=== PATIENT | male | born 1980 | race Caucasian/White ===

== ENCOUNTER 2019-09-01 14:26 | Emergency (ER) | payer OTHER, SELFPAY ==
--- NOTE | ~2019-09-01 | XR_ITS ---
EXAMINATION: XR hand RT min 3V INDICATION: Right hand pain TECHNIQUE: Three views of the right hand are obtained on four radiographs. COMPARISON: None available FINDINGS: There is no fracture, dislocation, or subluxation. There is mild dorsal soft tissue swellin g of the hand. The bones and joint spaces are normal. IMPRESSION: 1. No acute osseous abnormality. Reviewed, dictated and finalized at location B.
[2019-09-01 14:40] VITALS: BP 119/86; PULSE 89; RESP 20; TEMP 36.4; O2SAT 100
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
== END 2019-09-01 15:04 | disposition home or self-care (01) ==
PROVIDERS: Emergency Provider Registered Nurse; PCP Family Medicine
DX: S60.221A Contusion of right hand, initial encounter (principal); V86.06XA Driver of dirt bike or motor/cross bike injured in traffic accident, initial encounter; G47.33 Obstructive sleep apnea (adult) (pediatric); Z79.82 Long term (current) use of aspirin
CPT/HCPCS: 73130; 99213; G0463

== ENCOUNTER 2020-03-05 11:28 | Outpatient (CLI) | payer OTHER, SELFPAY ==
--- NOTE | ~2020-03-05 | CT_ITS ---
EXAMINATION: CT abdomen pelvis wo con DATE: 03/05/2020 12:08 INDICATION: Acute abdomen TECHNIQUE: Computed tomography (CT) of the abdomen and pelvis was performed without intravenous contr ast. Automated exposure control and iterative reconstruction technique were employed. The dose-length product was 589.58 mGy-cm. COMPARISON: None FINDINGS: Lung bases are clear. Heart size is normal. No pericardial or pleural effusion. Liver, gallbladder, s pleen, pancreas, bilateral adrenal glands and kidneys are normal. Mild diverticulosis along the desce nding and sigmoid colon. There is prominent asymmetric wall thickening and inflammatory stranding aamir rounding a diverticulum along the proximal sigmoid colon consistent with acute diverticulitis. No abs cess or free intraperitoneal gas. Small amount of likely reactive ascites in the deep pelvis. Small b owel and appendix are normal. Bladder is normal. Small bilateral fat-containing inguinal hernias. No pathologically enlarged abdominal or pelvic lymphadenopathy. Mild lower thoracic and minimal lumbar s pondylosis. IMPRESSION: 1. Radiographically uncomplicated sigmoid diverticulitis. 2. Small bilateral fat-containing inguinal hernias. Reviewed, dictated and finalized at location B. NING DEVELOPMENT MANAGER
[2020-03-05 12:09] LABS: Basophils Absolute Auto 0.1 K/mm3 (0.0-0.1); Basophils Percent Auto 0.4 % (0.2-1.2); Eosinophils Absolute Auto 0.1 K/mm3 (0-0.3); Eosinophils Percent Auto 0.3 % (0-4.4); Hematocrit 42.4 % (42.0-52.0); Hemoglobin 15.1 g/dL (14.0-18.0); Immature Granulocyte Absolute 0.06 K/mm3 (0.00-0.031); Immature Granulocyte Percent A 0.4 % (0-0.5); Lymphocytes Absolute Auto 1.68 K/mm3 (0.9-3.2); Lymphocytes Percent Auto 11.2 % (18.3-44.2); Mean Corpuscular HGB Conc 35.6 g/dl (32-36); Mean Corpuscular Hemoglobin 31.5 pg (26-34); Mean Corpuscular Volume 88.3 fl (80-100); Mean Platelet Volume 8.6 fl (7.4-10.4); Monocytes Absolute Auto 1.1 K/mm3 (0.1-0.6); Monocytes Percent Auto 7.4 % (2.6-8.5); Neutrophils Percent Auto 80.3 % (45.5-73.1); Platelet Count Result 234 k/mm3 (150-375); Red Cell Distribution Width 11.4 % (11.5-14.5); White Blood Count 14.9 K/mm3 (4.5-10.0)
[2020-03-05 12:38] LABS: Erythrocyte Sedimentation Rate 20 mm/hr (0-20)
== END 2020-03-05 11:29 | disposition home or self-care (01) ==
PROVIDERS: PCP Family Medicine; Visit Provider Family Medicine
DX: R10.0 Acute abdomen (principal); K40.90 Unilateral inguinal hernia, without obstruction or gangrene, not specified as recurrent
CPT/HCPCS: 36415; 74176; 85025; 85652

== ENCOUNTER 2020-11-23 03:03 | Day surgery (SDC) | payer OTHER, SELFPAY ==
[2020-11-12 15:58] VITALS: BMI 28.8
[2020-11-23 07:31] VITALS: BP 122/74; PULSE 57; RESP 20; TEMP 36.6; O2SAT 100; BMI 28.9
[2020-11-23] MEDS: LACTATED RINGERS 1,000 ML 150 ML IV CONT (07:42)
--- NOTE | 2020-11-23 07:46 | WPDANESEPPF ---
Anes - Initial Pre Proc Eval Procedure: Operation Date: 11/23/20 08:30 Proposed Procedures p Colonoscopy - Guru Mejia MD Date/Time: 11/23/20 07:46 Surgeon: Guru Mejia MD Pre Op Diagnosis: diverticulitis Patient Data Age: 40 Gender: M Height: 1.78 m Weight: 91.4 kg Last Vital Signs Temp 36.6 C 11/23/20 07:31 Pulse 57 L 11/23/20 07:31 Resp 20 11/23/20 07:31 BP 122/74 11/23/20 07:31 Pulse Ox 100 11/23/20 07:31 Allergies Allergy/AdvReac Type Severity Reaction Status Date / Time No Known Allergies Allergy Verified 11/23/20 07:29 Home Medications Medication Instructions Recorded Confirmed Type aspirin 325 mg tablet 325 mg PO DAILY 12/25/18 11/12/20 History cyanocobalamin (vitamin B-12) 250 250 mcg PO DAILY 12/25/18 11/12/20 History mcg tablet metoprolol tartrate 25 mg tablet See Rx Instructions .ROUTE 09/22/20 11/12/20 Rx .COMPLEX #30 tablet linaclotide 72 mcg capsule 72 mcg PO DAILY #30 cap 10/19/20 11/12/20 Rx flecainide 100 mg PO BID 11/12/20 11/12/20 History Patient hx anesthesia problems: none Family hx anesthesia problems: none Results Review: All pre-operative results and documents have been reviewed as part of the pre-operative evaluation. [facility] Past Medical History Medical History Family history of colon cancer Fracture of left hand Headache History of elevated lipids Migraine OMAR (obstructive sleep apnea) PAF (paroxysmal atrial fibrillation) Surgical History Surgical History H/O vasectomy History of appendectomy Family History Family History Father Heart disease Mother Patient's mother is in good health Father Patient's father is in good health Sibling Patient's sister is in good health Father Family history of cardiovascular disease Family history of heart disease in male family member before age 55 Sibling Carcinoma of colon, Onset Age: 42 Patient's brother is Social History Social History Social History: Smoking packs per day: 1 Smoking cigarettes per day: 20.0 Smoking status: Never smoker Tobacco type: cigarettes Second hand tobacco smoke exposure: No Smoking end date: 10/07/03 Alcohol intake: current Drinks per week: 12 Alcohol use details: Occasionally Substance use: never Substance use type: does not use Living arrangements: with family Gender identity (if verbalized by the patient): Male Sexual Orientation (if Verbalized by the Patient): Straight or Heterosexual Spiritual care concerns: No Anes - Eval Final PreProcedure Day of Procedure 11/23/20 07:46 Patient weight: overweight Heart: regular rate and rhythm Lungs: clear to auscultation Airway: Mallampati scale class II Neurological: alert and oriented Last oral intake: >/= 8 hours ASA classification: III Emergent: no Anesthetic plan: proceed Anesthesia type and monitoring: general GIVS and standard monitoring Results Review: All pre-operative results and documents have been reviewed as part of the pre-operative evaluation. Informed Consent: The patient's anesthetic plan and its attendant risks and benefits were discussed with the patient/family/POA. Questions were solicited and answers provided to the satisfaction of the patient/family/POA.
--- NOTE | 2020-11-23 08:15 | WPDHPUPDATE1 ---
History and Physical Update Update Date/Time: 11/23/20 08:15 History and Physical has been reviewed, including an updated exam of the patient. There are NO changes in the patient's condition. Risks, benefits, and alternatives have been discussed and questions answered. Patient agrees to proceed with procedure.
[2020-11-23 08:47] VITALS: BP 96/56; PULSE 55; RESP 18; O2SAT 96
[2020-11-23 08:57] VITALS: BP 97/61; PULSE 51; RESP 16; O2SAT 97
[2020-11-23 09:07] VITALS: BP 107/74; PULSE 50; RESP 17; O2SAT 99
== END 2020-11-23 09:13 | disposition home or self-care (01) ==
PROVIDERS: PCP Family Medicine; Visit Provider Internal Medicine Gastroenterology
PROC: 0DJD8ZZ Inspection of Lower Intestinal Tract, Via Natural or Artificial Opening Endoscopic (ICD-10-PCS; CPT 45378; principal; 2020-11-23 08:30)
DX: K57.32 Diverticulitis of large intestine without perforation or abscess without bleeding (principal); K59.00 Constipation, unspecified; K64.8 Other hemorrhoids; I48.0 Paroxysmal atrial fibrillation; E78.5 Hyperlipidemia, unspecified; F17.200 Nicotine dependence, unspecified, uncomplicated; G47.33 Obstructive sleep apnea (adult) (pediatric); Z79.82 Long term (current) use of aspirin; Z80.0 Family history of malignant neoplasm of digestive organs
CPT/HCPCS: 45378; J2704; J7120

== ENCOUNTER 2021-03-23 10:48 | Emergency (ER) | payer OTHER, SELFPAY ==
[2021-03-23 10:52] VITALS: BP 120/74; PULSE 51; RESP 16; TEMP 36.3; O2SAT 100
--- NOTE | 2021-03-23 10:55 | ED.ABDPAIN ---
HPI - Abdominal Pain General Chief Complaint: Abdominal Pain Stated Complaint: ABD PAIN Time Seen by Provider: 03/23/21 10:55 Source: patient Mode of arrival: ambulatory Limitations: no limitations History of Present Illness HPI narrative: Carlito Tam is a 40 yo male with a PMH of a fib and diverticulitis, [facility] left lower quadrant pain and diarrhea since Sunday -has a diagnosis of diverticulitis had a colonoscopy 3 months ago; he states he has had multiple flareups years and most the time of pain disappears but sometimes it progresses to much worse illness as it did last year when he was diagnosed. He also has a diagnosis of of paroxysmal A. fib is on a rate control drug but no anticoagulants except aspirin-patient states that he was told he is not at high risk for stroke Related Data Home Medications Medication Instructions Recorded Confirmed aspirin 325 mg tablet 325 mg PO DAILY 12/25/18 11/12/20 cyanocobalamin (vitamin B-12) 250 250 mcg PO DAILY 12/25/18 11/12/20 mcg tablet flecainide 100 mg PO BID 11/12/20 11/12/20 Allergies Allergy/AdvReac Type Severity Reaction Status Date / Time No Known Allergies Allergy Verified 11/23/20 07:29 Review of Systems Review of Systems: CONSTITUTIONAL: Denies fever, chills, sweats. EYES: Denies visual changes, redness, discharge. ENT: Denies rhinorrhea, congestion, sore throat, otalgia. CARDIOVASCULAR: Denies chest pain, palpitations, edema. RESPIRATORY: Denies dyspnea, wheezing, cough GASTROINTESTINAL: has abdominal pain, nausea, vomiting, diarrhea since Sunday- not eating GENITOURINARY: Denies dysuria, hematuria, abnormal discharge SKIN: Denies rash or itching. NEUROLOGIC: Denies numbness, or focal weakness. PSYCHIATRIC: Denies anxiety or depression. [facility] Past Medical History Medical History Family history of colon cancer Fracture of left hand Headache History of elevated lipids Migraine OMAR (obstructive sleep apnea) PAF (paroxysmal atrial fibrillation) Surgical History Surgical History H/O vasectomy History of appendectomy Family History Family History Father Heart disease Mother Patient's mother is in good health Father Patient's father is in good health Sibling Patient's sister is in good health Father Family history of cardiovascular disease Family history of heart disease in male family member before age 55 Sibling Carcinoma of colon, Onset Age: 42 Patient's brother is Social History Social History Social History: Smoking packs per day: 1 Smoking cigarettes per day: 20.0 Smoking status: Never smoker Tobacco type: cigarettes Second hand tobacco smoke exposure: No Smoking end date: 10/07/03 Alcohol intake: current Drinks per week: 12 Alcohol use details: Occasionally Substance use: never Substance use type: does not use Gender identity (if verbalized by the patient): Male Sexual Orientation (if Verbalized by the Patient): Straight or Heterosexual Spiritual care concerns: No Comments At time of signature, I agree with nursing past medical, surgical, social and family history. There is no relevant family history pertinent to the presenting complaint. Exam Narrative: GENERAL: This is a well-nourished, well-developed patient, in mild distress. HEAD: normocephalic, atraumatic. EYESSclera clear/white. Vision is grossly intact. EARS: External ears normal, au. Hearing grossly intact. NOSE: External nose normal without nasal discharge, nares without redness, no rhinorrhea. THROAT: Mucous membranes moist, NECK: Neck supple, non-tender CARDIOVASCULAR: Regular rate and rhythm without murmurs, gallops, or rubs. RESPIRATORY: Clear to
== END 2021-03-23 11:29 | disposition short-term general hospital (02) ==
PROVIDERS: Emergency Provider Nurse Practitioner; PCP Family Medicine
DX: R10.32 Left lower quadrant pain (principal); Z87.891 Personal history of nicotine dependence; G47.33 Obstructive sleep apnea (adult) (pediatric); Z98.52 Vasectomy status; I48.0 Paroxysmal atrial fibrillation; Z79.82 Long term (current) use of aspirin
CPT/HCPCS: 99212; G0463

== ENCOUNTER 2021-03-23 12:02 | Emergency (ER) | payer OTHER, SELFPAY ==
--- NOTE | ~2021-03-23 | CT_ITS ---
EXAMINATION: CT abdomen pelvis w con INDICATION: Left lower quadrant abdominal pain TECHNIQUE: Computed tomographic images of the abdomen and pelvis were obtained after the administrati on of 100 cc of Omnipaque 350 intravenous contrast. The dose-length product (DLP) was 610.13 mGy-cm. Automated exposure control and iterative reconstruction technique were employed. COMPARISON: 03/05/2020 FINDINGS: Minimal dependent atelectasis is present in the lung bases. The heart size is normal. The l iver, spleen, pancreas, gallbladder, and adrenal glands are normal. The kidneys are unremarkable. No pathologically enlarged abdominal or pelvic lymph nodes are identified. Colonic diverticulosis is not ed. There is wall thickening at the proximal sigmoid colon with mild edematous stranding of the peric olic fat. There is no free intraperitoneal gas or evidence of bowel obstruction. There is a small fat -containing umbilical hernia. IMPRESSION: 1. Uncomplicated sigmoid diverticulitis. Reviewed, dictated and finalized at location A. R DIAMETER GRINDER
[2021-03-23 12:09] VITALS: BP 125/74; PULSE 63; RESP 16; TEMP 36.6; O2SAT 100
--- NOTE | 2021-03-23 12:40 | PC.NURSE ---
Patient reports lower abdominal pain that began Alexandre. History of diverticulitis.
[2021-03-23 12:57] LABS: Basophils Absolute Auto 0.1 K/mm3 (0.0-0.1); Basophils Percent Auto 0.7 % (0.2-1.2); Eosinophils Absolute Auto 0.2 K/mm3 (0-0.3); Eosinophils Percent Auto 2.6 % (0-4.4); Hematocrit 44.4 % (42.0-52.0); Hemoglobin 15.6 g/dL (14.0-18.0); Immature Granulocyte Absolute 0.03 K/mm3 (0.00-0.031); Immature Granulocyte Percent A 0.4 % (0-0.5); Lymphocytes Absolute Auto 1.59 K/mm3 (0.9-3.2); Lymphocytes Percent Auto 22.8 % (18.3-44.2); Mean Corpuscular HGB Conc 35.1 g/dl (32-36); Mean Corpuscular Hemoglobin 31.8 pg (26-34); Mean Corpuscular Volume 90.6 fl (80-100); Mean Platelet Volume 8.6 fl (7.4-10.4); Monocytes Absolute Auto 0.6 K/mm3 (0.1-0.6); Monocytes Percent Auto 8.3 % (2.6-8.5); Neutrophils Absolute Auto 4.5 K/mm3 (1.3-6.7); Neutrophils Percent Auto 65.2 % (45.5-73.1); Platelet Count Result 235 k/mm3 (150-375); Red Cell Distribution Width 12.1 % (11.5-14.5)
[2021-03-23] MEDS: SODIUM CHLORIDE 0.9% IV 1,000 ML 999 ML IV CONT (12:58)
[2021-03-23 12:59] LABS: Add Urine Microscopic? NO; Appearance Urine Clear (Clear); Bilirubin Urine Negative (Negative); Blood Urine Negative (Negative); Color Urine Yellow (Yellow); Glucose Urine UA Negative (Negative); Ketones Urine Negative (Negative); Leukocyte Esterase Ur Negative LEU/UL (Negative); Nitrate Urine Negative (Negative); Protein Urine Negative (Negative); Urobilinogen Urine Negative mg/dL (<2.0)
[2021-03-23 13:06] LABS: Alanine Aminotransferase 38 U/L (4-50); Albumin Level 4.6 g/dL (3.5-5.1); Alkaline Phosphatase 71 U/L (38-126); Anion Gap 11 mmol/L (8-16); Aspartate Amino Transferase 51 U/L (17-59); Bilirubin,Total 1.8 mg/dL (0.2-1.3); Blood Urea Nitrogen 8 mg/dL (9-20); Calcium 9.7 mg/dL (8.4-10.2); Carbon Dioxide 29 mmol/L (22-30); Chloride 98 mmol/L (98-107); Estimated CRCL calculation 96 ml/min; Estimated Glomerular Filt Rate > 60; Glucose 92 mg/dL (65-110); Lipase 40 U/L (23-300); Potassium 4.2 mmol/L (3.4-5.0); Sodium 138 mmol/L (137-145)
--- NOTE | 2021-03-23 13:06 | ED.ABDPAIN ---
HPI - Abdominal Pain General Chief Complaint: Abdominal Pain Stated Complaint: diverticulitis Time Seen by Provider: 03/23/21 12:29 Source: patient Mode of arrival: ambulatory Limitations: no limitations History of Present Illness HPI narrative: This is a 40 year old male that presents to the ER for LLQ abdominal pain present over the last 2 days. Associated with some diarrhea. Reports history of diverticulitis. Denies fever, vomiting, hematochezia, or dysuria. Related Data Home Medications Medication Instructions Recorded Confirmed aspirin 325 mg tablet 325 mg PO DAILY 12/25/18 03/23/21 cyanocobalamin (vitamin B-12) 250 250 mcg PO DAILY 12/25/18 03/23/21 mcg tablet dronedarone [Multaq] 400 mg BID 03/23/21 03/23/21 Allergies Allergy/AdvReac Type Severity Reaction Status Date / Time No Known Allergies Allergy Verified 11/23/20 07:29 Review of Systems Review of Systems: CONSTITUTIONAL: Denies fever GASTROINTESTINAL: Reports abdominal pain, diarrhea. Denies nausea, vomiting GENITOURINARY: Denies dysuria All systems reviewed & are unremarkable except as noted in HPI and below PMFSH Past Medical History Medical History Family history of colon cancer Fracture of left hand Headache History of elevated lipids Migraine OMAR (obstructive sleep apnea) PAF (paroxysmal atrial fibrillation) Surgical History Surgical History H/O vasectomy History of appendectomy Family History Family History Father Heart disease Mother Patient's mother is in good health Father Patient's father is in good health Sibling Patient's sister is in good health Father Family history of cardiovascular disease Family history of heart disease in male family member before age 55 Sibling Carcinoma of colon, Onset Age: 42 Patient's brother is Social History Social History Social History: Smoking packs per day: 1 Smoking cigarettes per day: 20.0 Smoking status: Never smoker Tobacco type: cigarettes Second hand tobacco smoke exposure: No Smoking end date: 10/07/03 Alcohol intake: current Drinks per week: 12 Alcohol use details: Occasionally Substance use: never Substance use type: does not use Gender identity (if verbalized by the patient): Male Sexual Orientation (if Verbalized by the Patient): Straight or Heterosexual Spiritual care concerns: No Exam Narrative: GENERAL: Well-appearing, well-nourished, and in no acute distress. HEAD: Normocephalic, atraumatic. EYES: EOMI. CHEST: Clear to auscultation. No respiratory distress. No wheezes rales or rhonchi HEART: Regular rate and rhythm. No murmur heard. Normal peripheral pulses. ABDOMEN: Soft, nondistended, normal active bowel sounds. Tender to palpation in the left lower quadrant, without guarding. No CVA tenderness EXTREMITIES: Normal range of motion. No edema. SKIN: Warm, dry, no rash. NEURO: No focal deficits. Alert and oriented x3. PSYCH: Normal mood and affect Course Vital Signs Vital signs: Vital Signs Temperature 97.9 F 03/23/21 12:09 Pulse Rate 63 03/23/21 12:09 Respiratory Rate 16 03/23/21 12:09 Blood Pressure 125/74 03/23/21 12:09 Pulse Oximetry 100 03/23/21 12:09 Temperature 97.9 F 03/23/21 12:09 Pulse Rate 63 03/23/21 12:09 Respiratory Rate 16 03/23/21 12:09 Blood Pressure 125/74 03/23/21 12:09 Pulse Oximetry 100 03/23/21 12:09 MDM - Abdominal Pain MDM Narrative Medical decision making narrative: Patient presents to the emergency department for left lower quadrant pain ongoing x2 days. He is afebrile and nontoxic-appearing. CBC is without leukocytosis. Metabolic panel and lipase without concerning findings. UA without evidence of i
--- NOTE | 2021-03-23 13:13 | PC.NURSE ---
Patient off unit to Radiology for abdominal CT.
[2021-03-23 13:23] LABS: Specific Grav Ur 1.002 (1.001-1.035)
[2021-03-23 14:16] VITALS: BP 107/67; PULSE 52; RESP 18; O2SAT 100
== END 2021-03-23 14:25 | disposition home or self-care (01) ==
PROVIDERS: Physician Assistant; Emergency Provider Emergency Medicine; PCP Family Medicine
DX: K57.32 Diverticulitis of large intestine without perforation or abscess without bleeding (principal); Z79.82 Long term (current) use of aspirin; G47.33 Obstructive sleep apnea (adult) (pediatric); I48.0 Paroxysmal atrial fibrillation; Z87.891 Personal history of nicotine dependence
CPT/HCPCS: 36415; 74177; 80053; 81003; 83690; 85025; 96361; 96365; 99284; J0131; J7030; Q9967

== ENCOUNTER 2022-05-26 04:17 | Emergency (ER) | payer OTHER, SELFPAY ==
--- NOTE | ~2022-05-26 | CT_ITS ---
EXAMINATION: CT abdomen pelvis w con DATE: 05/26/2022 05:33 INDICATION: Left lower quadrant pain TECHNIQUE: Computed tomography (CT) of the abdomen and pelvis was performed with 100 cc Omnipaque 350 intravenous contrast. The dose-length product was 784.72 mGy-cm. Automated exposure control and iter ative reconstruction technique were employed. COMPARISON: 03/23/2021 FINDINGS: Lung bases are unremarkable. Heart size normal. No significant pleural or pericardial effus ion. The liver, spleen, pancreas, adrenal glands and kidneys are unremarkable. No significant vascula r abnormality. There is thickening of the sigmoid colon with diverticula, surrounding inflammatory ch deshawn and fluid, consistent with acute diverticulitis. No evidence for abscess. Tiny fat-containing um bilical hernia. No free air. Nonobstructive bowel pattern. No lymphadenopathy. Bladder is unremarkabl e. No acute osseous abnormality. IMPRESSION: 1. Acute uncomplicated proximal sigmoid diverticulitis. Reviewed, dictated and finalized at location A.
[2022-05-26 04:20] VITALS: BP 124/74; PULSE 65; RESP 20; TEMP 36.8; O2SAT 99
[2022-05-26 04:27] VITALS: BP 121/75; PULSE 66; RESP 19; TEMP 36.6; O2SAT 96
[2022-05-26 05:01] LABS: Basophils Percent Auto 0.5 % (0.2-1.2); Eosinophils Absolute Auto 0.1 K/mm3 (0-0.3); Eosinophils Percent Auto 1.5 % (0-4.4); Hemoglobin 14.5 g/dL (14.0-18.0); Immature Granulocyte Absolute 0.02 K/mm3 (0.00-0.031); Immature Granulocyte Percent A 0.2 % (0-0.5); Lymphocytes Absolute Auto 1.62 K/mm3 (0.9-3.2); Lymphocytes Percent Auto 19.9 % (18.3-44.2); Mean Corpuscular HGB Conc 36.3 g/dl (32-36); Mean Corpuscular Hemoglobin 32.4 pg (26-34); Mean Corpuscular Volume 89.5 fl (80-100); Mean Platelet Volume 8.4 fl (7.4-10.4); Monocytes Absolute Auto 0.7 K/mm3 (0.1-0.6); Neutrophils Absolute Auto 5.7 K/mm3 (1.3-6.7); Neutrophils Percent Auto 69.9 % (45.5-73.1); Platelet Count Result 193 k/mm3 (150-375); Red Blood Count 4.47 M/mm3 (4.6-6.20); Red Cell Distribution Width 11.9 % (11.5-14.5); White Blood Count 8.1 K/mm3 (4.5-10.0)
[2022-05-26 05:04] LABS: Appearance Urine Clear (Clear); Bilirubin Urine Negative (Negative); Blood Urine Negative (Negative); Color Urine Yellow (Yellow); Glucose Urine UA Negative (Negative); Ketones Urine Negative (Negative); Leukocyte Esterase Ur Negative LEU/UL (Negative); Nitrate Urine Negative (Negative); Protein Urine Negative (Negative); Specific Grav Ur 1.002 (1.001-1.035); Urobilinogen Urine 0.2 mg/dL (<2.0); pH Urine 6.5 (5.0-9.0)
--- NOTE | 2022-05-26 05:10 | ED.ABDPAIN ---
HPI - Abdominal Pain General Chief Complaint: Abdominal Pain Stated Complaint: abd pain Time Seen by Provider: 05/26/22 04:31 History of Present Illness HPI narrative: Patient is a 42-year-old male with a history of hypertension presenting with abdominal pain. Patient states that for the last several days he has had left lower quadrant pain that feels similarly to a prior episode of diverticulitis. States that he has had decreased appetite but no nausea or vomiting. States that he had a bowel movement yesterday and it was normal. No hematochezia or melena. Denies fevers or chills, headache, numbness or weakness, chest pain, shortness of breath, cough, dysuria, hematuria, rashes, leg swelling. Related Data Home Medications Medication Instructions Recorded Confirmed aspirin 325 mg tablet 325 mg PO DAILY 12/25/18 03/23/21 cyanocobalamin (vitamin B-12) 250 250 mcg PO DAILY 12/25/18 03/23/21 mcg tablet (Vitamin B-12) dronedarone 400 mg tablet (Multaq) 400 mg BID 03/23/21 03/23/21 Allergies Allergy/AdvReac Type Severity Reaction Status Date / Time No Known Allergies Allergy Verified 05/26/22 04:43 Review of Systems Review of Systems: All systems reviewed & are unremarkable except as noted in HPI and below PMFSH Past Medical History Medical History Family history of colon cancer Fracture of left hand Headache History of elevated lipids Migraine OMAR (obstructive sleep apnea) PAF (paroxysmal atrial fibrillation) Surgical History Surgical History H/O vasectomy History of appendectomy Family History Family History Father Heart disease Mother Patient's mother is in good health Father Patient's father is in good health Sibling Patient's sister is in good health Father Family history of cardiovascular disease Family history of heart disease in male family member before age 55 Sibling Carcinoma of colon, Onset Age: 42 Patient's brother is Social History Social History Social History: Smoking packs per day: 1 Smoking cigarettes per day: 20.0 Smoking status: Former smoker Tobacco type: cigarettes Second hand tobacco smoke exposure: No Smoking end date: 10/07/03 Alcohol intake: current Drinks per week: 12 Substance use: never Substance use type: does not use Living arrangements: with family Occupation/Education: occupation Gender identity (if verbalized by the patient): Male Sexual Orientation (if Verbalized by the Patient): Straight or Heterosexual Spiritual care concerns: No Exam Narrative: GENERAL: Well-appearing, well-nourished, and in no acute distress. HEAD: Normocephalic, atraumatic. EYES: PERRLA and EOMI. ENT: Nares clear, no rhinorrhea or epistaxis. Mucous membranes moist. NECK: Supple. CHEST: Clear to auscultation. No respiratory distress. HEART: Regular rate and rhythm. Normal peripheral pulses. ABDOMEN: Soft, +LLQ tenderness, no guarding or rebound EXTREMITIES: Normal range of motion. No edema. SKIN: Warm, dry, no rash. NEURO: No focal deficits. Alert and oriented x3. PSYCH: Normal mood and affect. Course Vital Signs Vital signs: Vital Signs Temperature 98.2 F 05/26/22 04:20 Pulse Rate 65 05/26/22 04:20 Respiratory Rate 20 05/26/22 04:20 Blood Pressure 124/74 05/26/22 04:20 Pulse Oximetry 99 05/26/22 04:20 Oxygen Delivery Room Air 05/26/22 04:20 Temperature 97.9 F 05/26/22 04:27 Pulse Rate 66 05/26/22 04:27 Respiratory Rate 19 05/26/22 04:27 Blood Pressure 121/75 05/26/22 04:27 Pulse Oximetry 96 05/26/22 04:27 Oxygen Delivery Room Air 05/26/22 04:20 MDM - Abdominal Pain MDM Narrative Medical decision making narrative: Patient is a 4
[2022-05-26] MEDS: SODIUM CHLORIDE 0.9% IV 1,000 ML 999 ML IV CONT (05:13)
[2022-05-26 05:15] LABS: Add Urine Microscopic? NO
[2022-05-26 05:17] LABS: Alanine Aminotransferase 26 U/L (6-50); Albumin Level 4.2 g/dL (3.5-5.1); Alkaline Phosphatase 65 U/L (38-126); Anion Gap 4 mmol/L (8-16); Aspartate Amino Transferase 36 U/L (17-59); Bilirubin,Total 1.7 mg/dL (0.2-1.3); Blood Urea Nitrogen 8 mg/dL (9-20); Calcium 8.7 mg/dL (8.4-10.2); Carbon Dioxide 30 mmol/L (22-30); Chloride 98 mmol/L (98-107); Estimated CRCL calculation 124 ml/min; Estimated Glomerular Filt Rate > 60; Glucose 87 mg/dL (65-110); Lipase 48 U/L (23-300); Potassium 3.7 mmol/L (3.4-5.0); Sodium 132 mmol/L (137-145)
[2022-05-26] MEDS: KETOROLAC 15 MG/ML VIAL (*BKC) IV PUSH (05:19)
[2022-05-26] MEDS: AMOXICILLIN/CLAVULANATE K 875-125 MG TAB 1 TABLET PO (06:35)
[2022-05-26 06:58] VITALS: BP 109/76; PULSE 68; RESP 18; O2SAT 99
== END 2022-05-26 06:58 | disposition home or self-care (01) ==
PROVIDERS: Emergency Provider Emergency Medicine; PCP Family Medicine
DX: K57.32 Diverticulitis of large intestine without perforation or abscess without bleeding (principal); I48.0 Paroxysmal atrial fibrillation; G47.33 Obstructive sleep apnea (adult) (pediatric); Z87.891 Personal history of nicotine dependence; Z79.82 Long term (current) use of aspirin
CPT/HCPCS: 36415; 74177; 80053; 81003; 83690; 85025; 96365; 96375; 99284; A9270; J0131; J1885; J7030; Q9967

== ENCOUNTER 2022-10-07 22:59 | Emergency (ER) | payer OTHER, SELFPAY ==
--- NOTE | ~2022-10-07 | CT_ITS ---
EXAMINATION: CT abdomen pelvis w con DATE: 10/08/2022 01:27 INDICATION: Left lower quadrant abdominal pain. TECHNIQUE: Computed tomography (CT) of the abdomen and pelvis was performed with 100 mL Omnipaque 350 intravenous contrast. Automated exposure control and iterative reconstruction technique were employe d. The dose-length product was 845.16 mGy-cm. COMPARISON: CT abdomen and pelvis 05/26/2022 FINDINGS: The visualized portions of the lung bases demonstrated mild atelectasis. No pleural effusio n. The heart size is normal. No pericardial effusion. The liver, gallbladder, spleen, pancreas, and a drenal glands are normal. There are cysts in the kidneys measuring up to 5 mm. There are scattered di verticula in the colon. There is wall thickening in the sigmoid colon. There is fat stranding around the sigmoid colon centered at a diverticulum, consistent with diverticulitis. The appendix is not vis ualized. There are bilateral inguinal hernias containing fat. There are no pathologically enlarged ly mph nodes. There is trace fluid in left paracolic gutter. There is mild thoracic and lumbar spondylos is. IMPRESSION: 1. Acute sigmoid diverticulitis. No perforation or abscess. Reviewed, dictated and finalized at location E.
[2022-10-07 23:03] VITALS: BP 132/72; PULSE 73; RESP 17; TEMP 36.7; O2SAT 98
--- NOTE | 2022-10-08 00:19 | ED.ABDPAIN ---
HPI - Abdominal Pain General Chief Complaint: Abdominal Pain <JOANNE Tomlinson Last Filed: 10/08/22 04:24> Stated Complaint: abd pain <JOANNE Tomlinson Last Filed: 10/08/22 04:24> Time Seen by Provider: 10/07/22 23:58 <JOANNE Tomlinson Last Filed: 10/08/22 04:24> History of Present Illness HPI narrative: 42-year-old male with a history of diverticulitis x4 reports for evaluation for left lower quadrant pain x2 days. Patient states he thinks he has diverticulitis again. He reports the pain is sharp and constant in his left lower quadrant. States this is now his diverticulitis normally presents. Denies fever, chest pain, shortness of breath, cough or congestion, nausea or vomiting, diarrhea, back pain, dysuria or hematuria, testicular pain or swelling. <JOANNE Tomlinson Last Filed: 10/08/22 04:24> Related Data Home Medications: Home Medications Medication Instructions Recorded Confirmed aspirin 325 mg tablet 325 mg PO DAILY 12/25/18 06/24/22 cyanocobalamin (vitamin B-12) 250 250 mcg PO DAILY 12/25/18 06/24/22 mcg tablet (Vitamin B-12) dronedarone 400 mg tablet (Multaq) 400 mg BID 03/23/21 06/24/22 <JOANNE Tomlinson Last Filed: 10/08/22 04:24> Allergies/Adverse Reactions: Allergies Allergy/AdvReac Type Severity Reaction Status Date / Time No Known Allergies Allergy Verified 06/23/22 10:21 <JOANNE Tomlinson Last Filed: 10/08/22 04:24> Review of Systems Review of Systems: CONSTITUTIONAL: Denies fever, chills EYES: Denies visual changes, redness, or discharge. ENT: Denies rhinorrhea, congestion, sore throat, or otalgia. CARDIOVASCULAR: Denies chest pain, palpitations, or edema. RESPIRATORY: Denies cough or dyspnea. GASTROINTESTINAL: See HPI GENITOURINARY: Denies dysuria or hematuria. SKIN: Denies rash or itching. MUSCULOSKELETAL: Denies back pain, joint pain, or myalgia. NEUROLOGIC: Denies headache, numbness, dizziness, or weakness. PSYCHIATRIC: Denies anxiety or depression. <Nani Navarro PA-C - Last Filed: 10/08/22 04:24> [facility] Past Medical History Medical History: Medical History Family history of colon cancer Fracture of left hand Headache History of elevated lipids Migraine OMAR (obstructive sleep apnea) PAF (paroxysmal atrial fibrillation) <Nani Navarro PA-C - Last Filed: 10/08/22 04:24> Surgical History Surgical History: Surgical History H/O vasectomy History of appendectomy <Nani Navarro PA-C - Last Filed: 10/08/22 04:24> Family History Family History: Family History Father Heart disease Mother Patient's mother is in good health Father Patient's father is in good health Sibling Patient's sister is in good health Father Family history of cardiovascular disease Family history of heart disease in male family member before age 55 Sibling Carcinoma of colon, Onset Age: 42 Patient's brother is <Nani Navarro PA-C - Last Filed: 10/08/22 04:24> Social History Social History: Social History Social History: Smoking packs per day: 1 Smoking cigarettes per day: 20.0 Smoking status: Former smoker Tobacco type: cigarettes Second hand tobacco smoke exposure: No Smoking end date: 10/07/03 Alcohol intake: current Drinks per week: 6 Substance use: never Substance use type: does not use Lack of Transportation: No Lack of Food: Never True Current Housing: I Have Housing Concerned About Future Housing: No Difficulty Paying Gas/Electric Bills: No Difficulty Paying for Meds: No Currently Unemployed: No Education: Decline to Answer Difficulty w/ Childcare or Family Car
[2022-10-08] MEDS: SODIUM CHLORIDE 0.9% IV 1,000 ML 999 ML IV CONT (01:01)
[2022-10-08] MEDS: KETOROLAC 30 MG/ML VIAL (*BKC) IV PUSH (01:02)
[2022-10-08 01:04] LABS: Basophils Percent Auto 0.4 % (0.2-1.2); Eosinophils Absolute Auto 0.1 K/mm3 (0-0.3); Eosinophils Percent Auto 0.6 % (0-4.4); Hematocrit 41.2 % (42.0-52.0); Hemoglobin 14.4 g/dL (14.0-18.0); Immature Granulocyte Absolute 0.04 K/mm3 (0.00-0.031); Immature Granulocyte Percent A 0.4 % (0-0.5); Lymphocytes Absolute Auto 1.62 K/mm3 (0.9-3.2); Lymphocytes Percent Auto 15.2 % (18.3-44.2); Mean Corpuscular Hemoglobin 31.7 pg (26-34); Mean Corpuscular Volume 90.7 fl (80-100); Mean Platelet Volume 8.5 fl (7.4-10.4); Monocytes Absolute Auto 0.9 K/mm3 (0.1-0.6); Neutrophils Absolute Auto 8.1 K/mm3 (1.3-6.7); Neutrophils Percent Auto 75.4 % (45.5-73.1); Platelet Count Result 168 k/mm3 (150-375); Red Blood Count 4.54 M/mm3 (4.6-6.20); White Blood Count 10.7 K/mm3 (4.5-10.0)
[2022-10-08 01:16] LABS: Alanine Aminotransferase 24 U/L (6-50); Albumin Level 4.4 g/dL (3.5-5.1); Alkaline Phosphatase 64 U/L (38-126); Anion Gap 6 mmol/L (8-16); Aspartate Amino Transferase 35 U/L (17-59); Bilirubin,Total 1.9 mg/dL (0.2-1.3); Blood Urea Nitrogen 14 mg/dL (9-20); Calcium 8.7 mg/dL (8.4-10.2); Carbon Dioxide 31 mmol/L (22-30); Chloride 96 mmol/L (98-107); Estimated CRCL calculation 98 ml/min; Estimated Glomerular Filt Rate > 60; Glucose 92 mg/dL (65-110); Lipase 46 U/L (23-300); Potassium 4.3 mmol/L (3.4-5.0); Sodium 133 mmol/L (137-145)
[2022-10-08 01:35] LABS: Appearance Urine Clear (Clear); Bilirubin Urine Negative (Negative); Blood Urine Negative (Negative); Color Urine Yellow (Yellow); Glucose Urine UA Negative (Negative); Ketones Urine Negative (Negative); Leukocyte Esterase Ur Negative LEU/UL (Negative); Nitrate Urine Negative (Negative); Protein Urine Negative (Negative); Specific Grav Ur 1.004 (1.001-1.035); Urobilinogen Urine 0.2 mg/dL (<2.0); pH Urine 6.5 (5.0-9.0)
[2022-10-08 01:37] LABS: Add Urine Microscopic? NO
[2022-10-08 04:37] VITALS: BP 116/76; PULSE 75; RESP 15; O2SAT 97
[2022-10-08 07:32] VITALS: BP 117/76; PULSE 90; RESP 18; O2SAT 97
== END 2022-10-08 07:41 | disposition home or self-care (01) ==
PROVIDERS: Emergency Provider Physician Assistant; PCP Family Medicine
DX: K57.92 Diverticulitis of intestine, part unspecified, without perforation or abscess without bleeding (principal); I48.0 Paroxysmal atrial fibrillation; Z87.891 Personal history of nicotine dependence
CPT/HCPCS: 36415; 74177; 80053; 81003; 83690; 85025; 96361; 96374; 99284; J1885; J7030; Q9967

== ENCOUNTER 2023-06-10 17:25 | Emergency (ER) | payer OTHER, SELFPAY ==
--- NOTE | ~2023-06-10 | CT_ITS ---
EXAMINATION: CT abdomen pelvis w con DATE: 06/10/2023 18:16 INDICATION: Left lower quadrant tenderness TECHNIQUE: Computed tomography (CT) of the abdomen and pelvis was performed with 100 mL Omnipaque-350 intravenous contrast. Automated exposure control and iterative reconstruction technique were employe d. The dose-length product was 656.19 mGy-cm. COMPARISON: 10/08/2022 FINDINGS: Mild atelectasis at the bilateral lung bases. Heart size is normal. No pericardial or pleural effusio n. Liver, gallbladder, spleen, pancreas, bilateral adrenal glands and left kidney are normal. [address] at the lower pole of the right kidney. There are few scattered colonic diverticula. There is promi nent from trace stranding surrounding a diverticulum at the proximal sigmoid colon where there is als o prominent edematous wall thickening consistent with acute diverticulitis. Is a minimal amount fluid at the caudal aspect of the bilateral paracolic gutters. No abscess or free intraperineal gas. No bharath wel obstruction. Appendix is again not visualized. Bladder is normal. Small bilateral fat-containing inguinal hernias, left larger than right. No pathologically enlarged abdominal or pelvic lymphadenopa thy. Mild thoracic and lumbar spondylosis. IMPRESSION: 1. Radiographically uncomplicated acute sigmoid diverticulitis without abscess. Reviewed, dictated and finalized at location A.
[2023-06-10 17:26] VITALS: BP 136/81; PULSE 66; RESP 18; TEMP 36.1; O2SAT 100
--- NOTE | 2023-06-10 17:34 | ED.ABDPAIN ---
HPI - Abdominal Pain General Chief Complaint: Abdominal Pain Stated Complaint: abdominal pain Time Seen by Provider: 06/10/23 17:32 Source: patient Mode of arrival: ambulatory Limitations: no limitations History of Present Illness HPI narrative: This is a 43-year-old male with PMH of diverticulitis x5, paroxysmal AFib s/p cardioversion who presents to the ED with chief complaint of left lower quadrant abdominal pain for the past 2 days. Feels that he likely has diverticulitis again. Reports the pain does not radiate. Has been steadily worsening since onset. Denies fevers, chills, nausea, vomiting, constipation, diarrhea, GI bleeding. Patient reports that he has been consistent with his dietary recommendations including increasing his fiber intake as well a reducing seeds and nuts. Patient reports that he saw GI in the past but has not seen them recently. Past surgical history of vasectomy, appendectomy Related Data Home Medications Medication Instructions Recorded Confirmed metoprolol tartrate 25 mg tablet 25 mg PO DAILY 06/10/23 Allergies Allergy/AdvReac Type Severity Reaction Status Date / Time No Known Allergies Allergy Verified 06/10/23 17:25 Review of Systems Review of Systems: All systems as dictated in HPI [facility] Past Medical History Medical History Family history of colon cancer Fracture of left hand Headache History of elevated lipids Migraine OMAR (obstructive sleep apnea) PAF (paroxysmal atrial fibrillation) Surgical History Surgical History H/O vasectomy History of appendectomy Family History Family History Father Heart disease Mother Patient's mother is in good health Father Patient's father is in good health Sibling Patient's sister is in good health Father Family history of cardiovascular disease Family history of heart disease in male family member before age 55 Sibling Carcinoma of colon, Onset Age: 42 Patient's brother is Social History Social History (Updated 03/09/23 @ 11:12 by Haleigh Weinberg) Social History: Smoking packs per day: 1 Smoking cigarettes per day: 20.0 Smoking status: Former smoker Tobacco type: cigarettes Second hand tobacco smoke exposure: No Smoking end date: 10/07/03 Alcohol intake: current Drinks per week: 6 Substance use: never Substance use type: does not use Do You Feel Safe in your Home?: Yes Lack of Transportation: No Lack of Food: Never True Current Housing: I Have Housing Concerned About Future Housing: No Difficulty Paying Gas/Electric Bills: No Difficulty Paying for Meds: No Currently Unemployed: No Education: Decline to Answer Difficulty w/ Childcare or Family Care: No Living arrangements: with family Occupation/Education: occupation Additional occupation/education comments: Director of Data Gender identity (if verbalized by the patient): Male Sexual Orientation (if Verbalized by the Patient): Straight or Heterosexual Spiritual care concerns: No Exam Narrative: GENERAL: Well-appearing, well-nourished, and in no acute distress. HEAD: Normocephalic, atraumatic. EYES: PERRLA and EOMI. ENT: Nares clear, no rhinorrhea or epistaxis. Mucous membranes moist. Oropharynx without tonsillar hypertrophy exudate or other lesions. NECK: Supple. No adenopathy or masses. CHEST: No respiratory distress. Clear to auscultation. No wheezes rales or rhonchi HEART: Regular rate and rhythm. No murmur heard. Normal peripheral pulses. ABDOMEN: Focal left lower quadrant tenderness present. Soft, otherwise nontender, nondistended, normal active bowel sounds. No rebound, guarding or rigidity. No flank tenderness bilaterally MSK: Normal range of motion. No edema. SKIN: Warm, dry, no rash. NEURO: Alert an
[2023-06-10 17:44] LABS: Basophils Percent Auto 0.4 % (0.2-1.2); Eosinophils Absolute Auto 0.1 K/mm3 (0-0.3); Eosinophils Percent Auto 0.8 % (0-4.4); Hematocrit 42.9 % (42.0-52.0); Hemoglobin 15.1 g/dL (14.0-18.0); Immature Granulocyte Absolute 0.03 K/mm3 (0.00-0.031); Immature Granulocyte Percent A 0.3 % (0-0.5); Lymphocytes Absolute Auto 1.67 K/mm3 (0.9-3.2); Lymphocytes Percent Auto 15.1 % (18.3-44.2); Mean Corpuscular HGB Conc 35.2 g/dl (32-36); Mean Corpuscular Hemoglobin 32.1 pg (26-34); Mean Corpuscular Volume 91.1 fl (80-100); Mean Platelet Volume 8.3 fl (7.4-10.4); Monocytes Absolute Auto 0.9 K/mm3 (0.1-0.6); Monocytes Percent Auto 8.5 % (2.6-8.5); Neutrophils Absolute Auto 8.3 K/mm3 (1.3-6.7); Neutrophils Percent Auto 74.9 % (45.5-73.1); Platelet Count Result 209 k/mm3 (150-375); Red Blood Count 4.71 M/mm3 (4.6-6.20); Red Cell Distribution Width 12.2 % (11.5-14.5); White Blood Count 11.1 K/mm3 (4.5-10.0)
[2023-06-10] MEDS: ONDANSETRON INJ 4 MG/2 ML VIAL IV PUSH (17:48)
[2023-06-10] MEDS: MORPHINE SULFATE (*CRX) 4 MG/ML INJ IV PUSH (17:48)
[2023-06-10 18:02] LABS: Alanine Aminotransferase 19 U/L (6-50); Albumin Level 4.8 g/dL (3.5-5.1); Alkaline Phosphatase 78 U/L (38-126); Anion Gap 8 mmol/L (4-12); Aspartate Amino Transferase 26 U/L (17-59); Bilirubin,Total 1.9 mg/dL (0.2-1.3); Blood Urea Nitrogen 10 mg/dL (9-20); Calcium 9.7 mg/dL (8.4-10.2); Carbon Dioxide 26 mmol/L (22-30); Chloride 103 mmol/L (98-107); Estimated CRCL calculation 108 ml/min; Estimated Glomerular Filt Rate > 60; Glucose 90 mg/dL (65-110); Lipase 34 U/L (23-300); Potassium 3.7 mmol/L (3.4-5.0); Sodium 137 mmol/L (137-145)
[2023-06-10 18:14] LABS: Estimated CRCL calculation 88 ml/min; Estimated Glomerular Filt Rate > 60
[2023-06-10] MEDS: PIPERACILLN/TAZ 3.375GM/NS50ML 3.375 GM/50 ML BAG IVPB (18:40)
[2023-06-10 18:41] VITALS: BP 125/75; PULSE 66; RESP 18; O2SAT 99
[2023-06-10 18:50] LABS: Appearance Urine Clear (Clear); Bilirubin Urine Negative (Negative); Blood Urine Negative (Negative); Color Urine Yellow (Yellow); Glucose Urine UA Negative (Negative); Ketones Urine Negative (Negative); Leukocyte Esterase Ur Negative LEU/UL (Negative); Nitrate Urine Negative (Negative); Protein Urine Negative (Negative); Specific Grav Ur 1.019 (1.001-1.035); Urobilinogen Urine 0.2 mg/dL (<2.0); pH Urine 6.5 (5.0-9.0)
[2023-06-10 19:24] LABS: Add Urine Microscopic? NO
== END 2023-06-10 19:01 | disposition home or self-care (01) ==
PROVIDERS: Emergency Provider Physician Assistant; PCP Family Medicine
DX: K57.32 Diverticulitis of large intestine without perforation or abscess without bleeding (principal); I48.0 Paroxysmal atrial fibrillation; G47.33 Obstructive sleep apnea (adult) (pediatric)
CPT/HCPCS: 36415; 74177; 80053; 81003; 83690; 85025; 96365; 96375; 99284; J2270; J2405; J2543; Q9967

== ENCOUNTER 2024-01-02 22:46 | Emergency (ER) | payer OTHER, SELFPAY ==
--- NOTE | ~2024-01-02 | CT_ITS ---
EXAMINATION: CT abdomen pelvis w con DATE: 01/03/2024 00:33 INDICATION: Abdominal pain TECHNIQUE: Computed tomography (CT) of the abdomen and pelvis was performed with 100 mL Omnipaque-350 intravenous contrast. Automated exposure control and iterative reconstruction technique were employe d. The dose-length product was 681.44 mGy-cm. COMPARISON: 06/10/2023 FINDINGS: Minimal discoid atelectasis in the bilateral lower lungs. Heart size is normal. No pericardial or ple ural effusion. Liver, gallbladder, spleen, pancreas, bilateral adrenal glands and kidneys are normal. Mild to moderate sigmoid and descending colon predominant diverticulosis without wall thickening and inflammatory stranding at the proximal sigmoid colon consistent diverticulitis. No abscess or free i ntraperitoneal gas or fluid. No bowel obstruction. Bladder is normal. Small bilateral fat-containing inguinal hernias. No pathologically enlarged abdominal or pelvic lymphadenopathy. Mild lumbar and mil d to moderate lower thoracic spondylosis. IMPRESSION: 1. Radiographically uncomplicated sigmoid diverticulitis. Reviewed, dictated and finalized at location A. SERVICES PROFESSIONAL
[2024-01-02 22:48] VITALS: BP 137/81; PULSE 68; RESP 14; TEMP 36.4; O2SAT 100
[2024-01-02 23:15] LABS: Basophils Percent Auto 0.5 % (0.2-1.2); Eosinophils Absolute Auto 0.1 K/mm3 (0-0.3); Eosinophils Percent Auto 1.4 % (0-4.4); Hemoglobin 15.3 g/dL (14.0-18.0); Immature Granulocyte Absolute 0.01 K/mm3 (0.00-0.031); Immature Granulocyte Percent A 0.1 % (0-0.5); Lymphocytes Percent Auto 26.4 % (18.3-44.2); Mean Corpuscular HGB Conc 35.6 g/dl (32-36); Mean Corpuscular Hemoglobin 32.3 pg (26-34); Mean Corpuscular Volume 90.9 fl (80-100); Mean Platelet Volume 8.6 fl (7.4-10.4); Monocytes Absolute Auto 0.6 K/mm3 (0.1-0.6); Monocytes Percent Auto 7.3 % (2.6-8.5); Neutrophils Absolute Auto 5.6 K/mm3 (1.3-6.7); Neutrophils Percent Auto 64.3 % (45.5-73.1); Platelet Count Result 214 k/mm3 (150-375); Red Blood Count 4.73 M/mm3 (4.6-6.20); Red Cell Distribution Width 12.1 % (11.5-14.5); White Blood Count 8.7 K/mm3 (4.5-10.0)
[2024-01-02 23:27] LABS: Alanine Aminotransferase 27 U/L (6-50); Albumin Level 4.7 g/dL (3.5-5.1); Alkaline Phosphatase 67 U/L (38-126); Anion Gap 13 mmol/L (4-12); Aspartate Amino Transferase 34 U/L (17-59); Bilirubin,Total 0.6 mg/dL (0.2-1.3); Blood Urea Nitrogen 13 mg/dL (9-20); Calcium 9.1 mg/dL (8.4-10.2); Carbon Dioxide 23 mmol/L (22-30); Chloride 102 mmol/L (98-107); Estimated CRCL calculation 108 ml/min; Estimated Glomerular Filt Rate > 60; Glucose 103 mg/dL (65-110); Lipase 70 U/L (23-300); Potassium 3.7 mmol/L (3.4-5.0); Sodium 138 mmol/L (137-145)
[2024-01-03 00:14] LABS: Add Urine Microscopic? NO; Appearance Urine Clear (Clear); Bilirubin Urine Negative (Negative); Blood Urine Negative (Negative); Color Urine Yellow (Yellow); Glucose Urine UA Negative (Negative); Ketones Urine Negative (Negative); Leukocyte Esterase Ur Negative LEU/UL (Negative); Nitrate Urine Negative (Negative); Protein Urine Negative (Negative); Urobilinogen Urine 0.2 mg/dL (<2.0)
--- NOTE | 2024-01-03 00:32 | ED.ABDPAIN ---
HPI - Abdominal Pain General Chief Complaint: Abdominal Pain Stated Complaint: diverticulitis flare up Time Seen by Provider: 01/03/24 00:11 Source: patient Mode of arrival: ambulatory Limitations: no limitations History of Present Illness HPI narrative: this is a 43-year-old male that presents to the emergency department for lower abdominal pain. Ongoing over the last couple of days. Reports history of diverticulitis and his pain feels similar. Denies fevers, vomiting, diarrhea. Related Data Home Medications Medication Instructions Recorded Confirmed metoprolol tartrate 25 mg tablet 25 mg PO DAILY 06/10/23 07/26/23 Allergies Allergy/AdvReac Type Severity Reaction Status Date / Time No Known Allergies Allergy Verified 07/26/23 08:34 Review of Systems Review of Systems: CONSTITUTIONAL: Denies fever GASTROINTESTINAL: Reports abdominal pain. Denies nausea, vomiting, or diarrhea. GENITOURINARY: Denies dysuria All systems reviewed & are unremarkable except as noted in HPI and below PMFSH Past Medical History Medical History Family history of colon cancer Fracture of left hand Headache History of elevated lipids Migraine OMAR (obstructive sleep apnea) PAF (paroxysmal atrial fibrillation) Surgical History Surgical History H/O vasectomy History of appendectomy Family History Family History Father Heart disease Mother Patient's mother is in good health Father Patient's father is in good health Sibling Patient's sister is in good health Father Family history of cardiovascular disease Family history of heart disease in male family member before age 55 Sibling Carcinoma of colon, Onset Age: 42 Patient's brother is Social History Social History Social History: Smoking packs per day: 1 Smoking cigarettes per day: 20.0 Smoking status: Former smoker Tobacco type: cigarettes Second hand tobacco smoke exposure: No Smoking end date: 10/07/03 Alcohol intake: current Drinks per week: 6 Substance use: never Substance use type: does not use Do You Feel Safe in your Home?: Yes Lack of Transportation: No Lack of Food: Never True Current Housing: I Have Housing Concerned About Future Housing: No Difficulty Paying Gas/Electric Bills: No Difficulty Paying for Meds: No Currently Unemployed: No Education: Decline to Answer Difficulty w/ Childcare or Family Care: No Living arrangements: with family Occupation/Education: occupation Additional occupation/education comments: Director of Data Gender identity (if verbalized by the patient): Male Sexual Orientation (if Verbalized by the Patient): Straight or Heterosexual Spiritual care concerns: No Exam Narrative: GENERAL: Well-appearing, well-nourished, and in no acute distress. HEAD: Normocephalic, atraumatic. EYES: EOMI. CHEST: Clear to auscultation. No respiratory distress. No wheezes rales or rhonchi HEART: Regular rate and rhythm. No murmur heard. Normal peripheral pulses. ABDOMEN: Soft, nondistended, normal active bowel sounds. Tender to palpation throughout the lower abdomen, without guarding EXTREMITIES: Normal range of motion. No edema. SKIN: Warm, dry, no rash. NEURO: No focal deficits. Alert and oriented x3. PSYCH: Normal mood and affect Course Course Emergency Course: patient updated on workup and agrees with plan of care Vital Signs Vital signs: Vital Signs Temperature 97.6 F 01/02/24 22:48 Pulse Rate 68 01/02/24 22:48 Respiratory Rate 14 01/02/24 22:48 Blood Pressure 137/81 01/02/24 22:48 Pulse Oximetry 100 01/02/24 22:48 Oxygen Delivery Room Air 01/02/24 22:48 Temperature 97.6 F 01/02/24 22:48 Pulse Rate 68 01/02/24 22:48 Respiratory Rate 14 01/02/24 22:48 Blood Pressure 137/81 01/02/24 22:48 Pulse Oximetry 100 01/02/24 22:48 Oxygen Delivery Room Air 01/02/24 22:48 MDM - Abdominal Pain MDM Narrative Medical decision making narrative: Patient presents to the emergency department for lower abdominal pain, history of diverticulitis. He is afebrile and nontoxic appearing. Cbc without leukocytosis. Metabolic panel without concerning findings. Urine without evidence of infection. CT abdomen and pelvis shows sigmoid diverticulitis without perforation. Consider exclusion of colorectal neoplasm. Urinary bladder reactive changes or cystitis. patient was updated on his workup and agrees with plan of care. Will be started on oral antibiotics. He is to follow up with primary provider and GI. He was given warnings to return to the ER Differential Diagnosis Differential diagnosis: Likely abdominal pain, constipation and diverticulitis Lab Data Attestation: I reviewed the patient's lab results. 01/02/24 22:57 01/02/24 22:58 Labs: Lab Results 01/02/24 01/02/24 01/03/24 Range/Units 22:57 22:58 00:08 WBC 8.7 (4.5-10.0) K/mm3 RBC 4.73 (4.6-6.20) M/mm3 Hgb 15.3 (14.0-18.0) g/dL Hct 43.0 (42.0-52.0) % MCV 90.9 (80-100) fl MCH 32.3 (26-34) pg MCHC 35.6 (32-36) g/dl RDW 12.1 (11.5-14.5) % Plt Count 214 (150-375) k/mm3 MPV 8.6 (7.4-10.4) fl Immature Gran % (Auto) 0.1 (0-0.5) % Neut % (Auto) 64.3 (45.5-73.1) % Lymph % (Auto) 26.4 (18.3-44.2) % [place] % (Auto) 7.3 (2.6-8.5) % Eos % (Auto) 1.4 (0-4.4) % Baso % (Auto) 0.5 (0.2-1.2) % Lymph # (Auto) 2.30 (0.9-3.2) K/mm3 [place] # (Auto) 0.6 (0.1-0.6) K/mm3 Eos # (Auto) 0.1 (0-0.3) K/mm3 Baso # (Auto) 0.0 (0.0-0.1) K/mm3 Abs Immat Gran (auto) 0.01 (0.00-0.031) K/mm3 Absolute Neuts (auto) 5.6 (1.3-6.7) K/mm3 Absolute Nucleated RBC 0.000 (0.0-0.012) K/mm3 Nucleated RBC % 0.0 (0.0-0.2) % Sodium 138 (137-145) mmol/L Potassium 3.7 (3.4-5.0) mmol/L Chloride 102 (98-107) mmol/L Carbon Dioxide 23 (22-30) mmol/L Anion Gap 13 H (4-12) mmol/L BUN 13 (9-20) mg/dL Creatinine 0.80 (0.7-1.3) mg/dL Estim Creat Clear Calc 108 ml/min Estimated GFR > 60 (59 - ) Glucose 103 (65-110) mg/dL Calcium 9.1 (8.4-10.2) mg/dL Total Bilirubin 0.6 (0.2-1.3) mg/dL AST 34 (17-59) U/L ALT 27 (6-50) U/L Alkaline Phosphatase 67 (38-126) U/L Total Protein 8.0 (6.3-8.2) g/dL Albumin 4.7 (3.5-5.1) g/dL Lipase 70 (23-300) U/L Urine Color Yellow (Yellow) Urine Appearance Clear (Clear) Urine pH 5.0 (5.0-9.0) Ur Specific [place] 1.010 (1.001-1.035) Urine Protein Negative (Negative) mg/dL Urine Glucose (UA) Negative (Negative) mg/dL Urine Ketones Negative (Negative) mg/dL Ur Blood (Man) Negative (Negative) Urine Nitrate Negative (Negative) Urine Bilirubin Negative (Negative) Urine Urobilinogen 0.2 (<2.0) mg/dL Leukocyte Esterase Rfl Negative (Negative) SAMANTHA/UL Imaging Data Radiologist's impression: CT abdomen and pelvis: sigmoid diverticulitis without perforation. Consider exclusion of colorectal neoplasm. Urinary bladder reactive changes or cystitis Critical Care Time Critical Care Time Critical Care Time: No Discharge Plan Discharge Clinical Impression: Diverticulitis Patient Disposition: Home, Self-Care Condition: Stable Instructions: Antibiotic Form, Diverticulitis (ED), Diverticulitis Diet (ED) Additional Instructions: Return to the ER if you experience fever, worsening abdominal pain with nausea and vomiting, you are unable to keep down liquids or solids, blood in the stool, or any other symptoms that are concerning to you Clear liquid diet for the next couple days, advance diet as tolerated. Remain well hydrated. Take oral antibiotic as prescribed Follow up with primary care doctor The radiologist is seeing a possible abnormality in your colorectal area on your CT scan which should be further evaluated with a colonoscopy Prescriptions: New amoxicillin-pot clavulanate 875-125 mg tablet 1 tablet PO Q8H 10 Days Qty: 30 0RF No Action diclofenac sodium 75 mg tablet,delayed release (DR/EC) 75 mg PO BID PRN (Reason: pain) Qty: 60 0RF methocarbamol 750 mg tablet 750 mg PO TID Qty: 90 0RF acetazolamide 250 mg tablet 250 mg PO DAILY Qty: 60 0RF rosuvastatin 5 mg tablet 5 mg PO DAILY Qty: 30 1RF metoprolol tartrate 25 mg tablet 25 mg PO DAILY lubiprostone [Amitiza] 8 mcg capsule 8 mcg PO BID Qty: 180 3RF Follow-up/Referrals: Guru Mejia MD [Physician] - Li Moore MD [Primary Care Provider] - 1 Week
[2024-01-03] MEDS: MORPHINE SULFATE (*CRX) 4 MG/ML INJ IV PUSH (00:49)
[2024-01-03] MEDS: ONDANSETRON INJ 4 MG/2 ML VIAL IV PUSH (00:49)
[2024-01-03] MEDS: AMOXICILLIN/CLAVULANATE K 875-125 MG TAB 1 TABLET PO (01:42)
[2024-01-03 01:49] VITALS: BP 130/72; PULSE 70; RESP 15; O2SAT 99
== END 2024-01-03 01:50 | disposition home or self-care (01) ==
PROVIDERS: Emergency Medicine; Emergency Provider Physician Assistant; PCP Family Medicine
DX: K57.32 Diverticulitis of large intestine without perforation or abscess without bleeding (principal); I48.0 Paroxysmal atrial fibrillation; G47.33 Obstructive sleep apnea (adult) (pediatric); Z87.891 Personal history of nicotine dependence
CPT/HCPCS: 36415; 74177; 80053; 81003; 83690; 85025; 96374; 96375; 99284; A9270; J2270; J2405; Q9967

== ENCOUNTER 2024-10-04 12:49 | Emergency (ER) | payer OTHER, SELFPAY ==
--- OUTSIDE RECORDS SUMMARY | 2023-03-31 05:43 | XMS_ITS | Continuity of Care Document ---
Author Name [facility] Organization [facility] Care Team Providers Care Photographic Engineer Name Role Phone [facility] Unavailable Unavailable Problems Combined list of problems from [facility] and [facility] facilities. It does not include entries that were removed or entered in error. Problem Status Onset Date Problem Type Date of Resolution Comments Source Chest Pain * (ICD-9-CM 786.50) Active Condition [facility] Closed fracture of metacarpal bone(s) (ICD-9-CM 815.00) Active Condition [facility] Headaches * (ICD-9-CM 784.0) Active Condition [facility] Palpitations (ICD-9-CM 785.1) Active Condition [facility] Encounters Combined list of: 1) Encounters from [facility] facilities going backup to the last 18 months, not all [place] inpatient encounters are included; 2) Encounters from the [facility] facilities going backup to 280 months. Location Location Details Encounter Type Encounter Number Reason For Visit Attending Provider ADM Date DC Date Status Disposition Source [facility] Outpatient Encounter [id number] 03/31 [facility] Social History Combined list of available smoking, tobacco, and other social history from [facility] and [facility] facilities. Social History Type Response Date Comment Sourc e Tobacco smoking status NHIS QUIT TOBACCO >12 MO and <7 YRS AGO 12/21/2006 [facility] History of tobacco use QUIT TOBACCO >12 MO and <7 YRS AGO 01/08/2006 [facility] History of tobacco use CURRENT NON-TOBAC CO USER-HX OF USE 05/05/2005 [facility] History of tobacco use CURRENT NON-TOBAC CO USER-HX OF USE 10/12/2004 [facility] History of tobacco use CURRENT TOBACCO USER 07/01/2004 [facility]
--- OUTSIDE RECORDS SUMMARY | 2023-09-06 09:38 | XMS_ITS | Continuity of Care Document ---
Author Organization [facility] Address [address] [place] [address] Phone Care Team Providers Care Disk Grinder Name Role Phone Mike PT, IVANNAT, Dominick Unavailable Unavailable Procedures Procedure Date PT Evaluation Low Complexity Therapeutic Activities Advance Directives Directive Yes / No Effective Date File Name No Information Encounters Encounter Description Practice Location Reason(s) For Visit Diagnoses Date Provider Providers Copied on Encounter [facility], [address], [place], [place], [id number], tel:[phone] [place] No Information 4 Mike Tan. . [facility], [address], [place], [place], [id number], tel:[phone] [place] No Information 4 Mike Tan. . Referring Provider: Li carver [address], [place], [address]. tel:[phone] Family History Family Member Type Diagnosis Age At Onset No Information Payers Payer name Insurance type Covered democrat ID Gume torres(s) [employer] CI [id number] Social History Type Description Quantity Date Captured Comments Sex Male Smoking Status No Information Chief Complaint And Reason For Visit No Information Reason For Referral Reason For Referral No Information History Of Present Illness Encounter Date Complaint History Of Prese nt Illness No Information Functional Status Date Functional Assessmen t No Information Instructions Date Instruction Additional Infor mation No Information Assessments Type Assessment Date No Information Patient Care Teams Name Effective Dates (start - stop) Status Members No Information
[2024-10-04 12:54] VITALS: BP 119/75; PULSE 80; RESP 18; TEMP 36.6; O2SAT 98
--- NOTE | 2024-10-04 13:50 | ED.EYEPROB ---
HPI - Eye Problem General Chief complaint: Eye Problems Stated complaint: EYE COMPLAINT Time Seen by Provider: 10/04/24 13:01 History of Present Illness HPI Narrative: Patient is a 44-year-old male who presents ER with decreased vision in left eye after being struck with a stick. He was throwing this tick to clear brush and it bounced off a tree striking him. He has tearing and blurry vision. His vision becomes black when he bends over at the waist and then improves when he stands back upright. Tetanus up-to-date. No foreign body sensation. Sclera injected. Has history of LASIK eye surgery. Related Data Home Medications ?Medication ?Instructions ?Recorded ?Confirmed ?Last Taken ?Type metoprolol tartrate 25 mg tablet 25 mg PO DAILY 06/10/23 01/10/24 06/10/23 History Allergies Allergy/AdvReac Type Severity Reaction Status Date / Time No Known Allergies Allergy Verified 10/04/24 12:59 Review of Systems Constitutional: Constitutional: Reports no additional constitutional complaints Eyes: Eyes: Reports no additional eye complaints ENT: Reports system reviewed and no additional complaints, except as documented [facility] Past Medical History Medical History Family history of colon cancer Fracture of left hand Headache History of elevated lipids Migraine OMAR (obstructive sleep apnea) PAF (paroxysmal atrial fibrillation) Surgical History Surgical History H/O vasectomy History of appendectomy Family History Family History Father Heart disease Mother Patient's mother is in good health Father Patient's father is in good health Sibling Patient's sister is in good health Father Family history of cardiovascular disease Family history of heart disease in male family member before age 55 Sibling Carcinoma of colon, Onset Age: 42 Patient's brother is Social History Social History Social History: Smoking packs per day: 1 Smoking cigarettes per day: 20.0 Smoking status: Former smoker Tobacco type: cigarettes Second hand tobacco smoke exposure: No Smoking end date: 10/07/03 Alcohol intake: current Drinks per week: 6 Substance use: never Substance use type: does not use Do You Feel Safe in your Home?: Yes Lack of Transportation: No Lack of Food: Never True Current Housing: I Have Housing Concerned About Future Housing: No Difficulty Paying Gas/Electric Bills: No Difficulty Paying for Meds: No Currently Unemployed: No Education: Decline to Answer Difficulty w/ Childcare or Family Care: No Living arrangements: with family Occupation/Education: occupation Additional occupation/education comments: Director of Data Gender identity (if verbalized by the patient): Male Sexual Orientation (if Verbalized by the Patient): Straight or Heterosexual Spiritual care concerns: No Exam Narrative: GENERAL: Well-appearing, well-nourished, and in no acute distress. HEAD: Normocephalic, atraumatic. EYES: PERRL and EOMI. Visual acuity after for worsening standing 20/30 in the left eye and 20/20 in the right eye. Left eye pressure 29 mmHg, right eye pressure 16 mmHg. Left eye with scleral injection throughout, no corneal abrasion with fluorescein staining, questionable superficial lac medial aspect sclera but no vitreous fluid leaking on magnification and worsened staining. No foreign body identified with lid eversion. Small abrasion/bruise to the midline of the upper lid on the left. ENT: Mucous membranes moist. EXTREMITIES: Normal range of motion. No edema. NEURO: Alert and oriented x3. PSYCH: Normal mood and affect. Course Course Emergency Course: Patient is septic to [facility] emergency room by Dr. Paulino, I also discussed the case with Ophthalmology Dr. Ramos. Vital Signs Vital signs: Vital Signs Temperature 97.8 F 10/04/24 12:54 Pulse Rate 80 10/04/24 12:54 Respiratory Rate 18 10/04/24 12:54 Blood Pressure 119/75 10/04/24 12:54 Pulse Oximetry 98 10/04/24 12:54 Oxygen Delivery Room Air 10/04/24 12:54 Temperature 97.8 F 10/04/24 12:54 Pulse Rate 80 10/04/24 12:54 Respiratory Rate 18 10/04/24 12:54 Blood Pressure 119/75 10/04/24 12:54 Pulse Oximetry 98 10/04/24 12:54 Oxygen Delivery Room Air 10/04/24 12:54 Discharge Plan Discharge Clinical Impression: Glaucoma associated with ocular trauma, Scleral laceration Patient Disposition: Acute Care Hospital Condition: Stable Patient Language: Slovenian Prescriptions: No Action rosuvastatin 5 mg tablet 5 mg PO DAILY Qty: 30 1RF metronidazole 500 mg tablet 500 mg PO Q8H Qty: 30 0RF metoprolol tartrate 25 mg tablet 25 mg PO DAILY lubiprostone [Amitiza] 8 mcg capsule 8 mcg PO BID Qty: 180 3RF Follow-up/Referrals: Li Moore MD [Primary Care Provider, Family Practice]
== END 2024-10-04 14:08 | disposition short-term general hospital (02) ==
PROVIDERS: Emergency Provider Emergency Medicine; PCP Family Medicine
DX: S05.32XA Ocular laceration without prolapse or loss of intraocular tissue, left eye, initial encounter (principal); H40.32X0 Glaucoma secondary to eye trauma, left eye, stage unspecified; G47.33 Obstructive sleep apnea (adult) (pediatric); I48.0 Paroxysmal atrial fibrillation; Z87.891 Personal history of nicotine dependence; W22.8XXA Striking against or struck by other objects, initial encounter
CPT/HCPCS: 99282